=== PATIENT | male | born 2000 | race African-American/Black ===

== ENCOUNTER 2019-09-04 18:08 | Emergency (ER) | payer OTHER ==
[~2019-09-04] VITALS: Ht 170.2 cm; Wt 80.5 kg
[2019-09-04 18:39] LABS: PLATELET COUNT 243 K/uL (142-355)
[2019-09-04 18:51] LABS: POTASSIUM 3.8 mmol/L (3.6-5.2)
[2019-09-04 20:21] VITALS: BP 130/78; TEMP 99.2
== END 2019-09-04 20:20 | disposition home or self-care (01) ==
LOC: ED 18:08
PROVIDERS: Hospitalist
DX: K52.89 Other specified noninfective gastroenteritis and colitis (principal); R11.2 Nausea with vomiting, unspecified; R19.7 Diarrhea, unspecified
CPT/HCPCS: 36415; 80053; 81000; 82150; 83690; 85027; 96360; 96375; 99283; 99284; J2405

== ENCOUNTER 2020-01-08 22:01 | Emergency (ER) | payer OTHER ==
[~2020-01-08] VITALS: Ht 170.2 cm; Wt 7.7 kg
[2020-01-08 22:36] LABS: PLATELET COUNT 236 K/uL (142-355)
[2020-01-08 22:44] LABS: POTASSIUM 3.4 mmol/L (3.6-5.2)
[2020-01-09 00:02] VITALS: BP 164/80; TEMP 98.1
== END 2020-01-09 00:02 | disposition home or self-care (01) ==
LOC: ED 22:01
PROVIDERS: Hospitalist
DX: K29.50 Unspecified chronic gastritis without bleeding (principal)
CPT/HCPCS: 36415; 80053; 80320; 81000; 82150; 83690; 85027; 96360; 96375; 99284; J1885; J2405

== ENCOUNTER 2020-04-01 22:07 | Emergency (ER) | payer OTHER ==
[~2020-04-01] VITALS: Ht 167.6 cm; Wt 77.1 kg
[2020-04-01 22:34] LABS: PLATELET COUNT 235 K/uL (142-355)
[2020-04-01 22:46] LABS: POTASSIUM 3.5 mmol/L (3.6-5.2)
[2020-04-02 00:01] VITALS: BP 122/89; TEMP 98.5
== END 2020-04-02 00:01 | disposition home or self-care (01) ==
LOC: ED 22:07
PROVIDERS: Hospitalist
DX: K29.70 Gastritis, unspecified, without bleeding (principal); K59.09 Other constipation; Z03.818 Encounter for observation for suspected exposure to other biological agents ruled out
CPT/HCPCS: 36415; 80053; 81000; 82150; 83690; 85027; 87502; 87635; 87651; 96360; 96375; 99284; J2405; U0003